=== PATIENT | male | born 1980 | race Caucasian/White ===

== ENCOUNTER 2019-12-12 15:57 | Emergency (ER) | payer OTHER, SELFPAY ==
[2019-12-12 16:06] VITALS: BP 136/94; PULSE 86; RESP 20; TEMP 36.8; O2SAT 97
--- NOTE | 2019-12-12 16:12 | ED_ITS ---
HPI - Neuro Symptoms/Deficit General Chief Complaint: Neuro Symptoms/Deficit Stated Complaint: vision blurry right eye Time Seen by Provider: 12/12/19 16:12 Source: patient and family () Mode of arrival: Ambulatory Limitations: no limitations History of Present Illness HPI Narrative: This is a 39-year-old male with right blurry vision to the eye. Patient in with complaint of starting about 3:15pm today. He states like there is a crack about half way across his vision and blurry on the right side and the right half of his vision is blurry. It is just his right eye when he covers the right eye he does not have any vision changes with the left. Patient denies headache. He denies any recent trauma. He wears glasses, he states he was wearing his contact when this occurred and he took them out. Patient states that it is not black it is just blurry he can see but it sort of wavy like he has ?sleepy? in his eye. Patient has not had any surgery on his eye but has had metal foreign bodies removed secondary to welding. He denies any numbness, tingling, difficulty with speech, he denies any facial droop. He is taking some clindamycin for a skin. He has not had similar symptoms in the past. He states he is otherwise healthy with no history of hypertension, diabetes or dyslipidemia. On Anticoagulants: No Related Data Previous Rx's Medication Instructions Recorded mometasone [Nasonex] 1 spray INTRANASAL QDAY #1 bot 03/01/17 clobetasol 1 trinity TOPICAL BIDP PRN #30 gm 04/13/17 fexofenadine 180 mg PO QDAY #30 tab 04/14/17 alprazolam [Xanax] 1 mg PO BIDP PRN #60 tab 09/13/17 sertraline [Zoloft] 1.5 tab PO QDAY #45 tab 09/13/17 Allergies Allergy/AdvReac Type Severity Reaction Status Date / Time amoxicillin [AMOXICILLIN] Allergy Mild Causes rash Unverified 02/15/18 12:36 Review of Systems Review of Systems ROS Unobtainable: All systems reviewed & are unremarkable except as noted in HPI and below Patient History Substance Use Type: marijuana Exam Narrative Exam Narrative: GEN: well nourished, well appearing male, alert and oriented x 3 , patient appears to be in mild distress. HEENT: Atraumatic, pupils are equal round reactive to light, extraocular movements are intact, nares are clear, TMs are clear with no fluid, there is no conjunctival pallor. Throat is clear without any exudates, erythema, tonsillar enlargement or uvular deviation Visual acuity: right [20/40], left [20/20] without correction. General: no globe trauma Eyelids: normal inspection. Conjunctiva/Sclera: normal inspection Corneas: normal inspection. EOM: intact, no palsy/entrapment Pupils: PERRL, normal accomadation, pupil normal Anterior Chambers: normal inspection, no hypema Posterior: normal fundoscopic bilaterally although difficulty exam. HEART: Regular rate and rhythm without murmur, clicks, rubs. LUNGS:Lungs clear to auscultation, no wheezes, rales, crackles, chest moves symmetrically ABD:bowel sounds normal, soft, non-tender, no guarding, rebound, rigidity, no masses noted, no hepatosplenomegaly MSCL: Non-tender, no muscle atrophy, muscles strength 5/5 upper and lower extremities, full range of motion, normal gait NEURO:CN 2-12 intact, sensation normal, reflexes 2/4 upper and lower extremities. finger nose finger test normal, heel quiñones test normal, no dysarthria or aphasia. SKIN: several small erythematous lesions on anterior chest. Initial Vital Signs Initial Vital Signs: Vital Signs Temperature 98.3 F 12/12/19 16:06 Pulse Rate 86 12/12/19 16:06 Respiratory Rate 20 12/12/19 16:06 Blood Pressure 136/94 H 12/12/19 16:06 Pulse Oximetry 97 12/12/19 16:06 Scores NIH Stroke Scale Level of Conciousness: Alert, keenly responsive Ask month/age: Answers both questions correctly. Open/close eyes, close hand: Performs both tasks correctly Best gaze horizontal: Normal Visual valles: No visual loss Facial palsy: Normal symetrical movement Left arm drift: No drift for full 10 sec Right arm drift: No drift for full 10 sec Left leg drift: No drift for full 10 sec Right leg drift: No drift for full 10 sec Limb ataxia: Absent Sensory on face/arms/legs: Normal, no sensory loss Best language: No aphasia, normal Dysarthria: Normal Extinction or inattention: No abnormality Total NIH Stroke scale score: 0 Course Vital Signs Vital signs: Vital Signs - 8 hr 12/12/19 16:06 Temperature 98.3 F Pulse Rate 86 Respiratory Rate 20 Blood Pressure 136/94 H Pulse Oximetry 97 MDM - Neuro Symptoms/Deficit MDM Narrative Medical decision making narrative: Patient's exam and visual changes are concerning for possible retinal involvement. Visual acuity is 20/40 on affected side and 20/20 on unaffected side. Spoke with Dr. Suárez regarding findings and he is happy to see the patient. Patient's neuro exam was otherwise normal. He has vision on confrontation and with fingers through all 5 quadrants in his right eye although they are described as more blurry on the right. Patient and I discussed if ophthalmology feels appropriate they will have him return to the ER for further evaluation. Discharge Plan Departure Patient Disposition: Home Clinical Impression: Blurred vision, right eye Discharge Date/Time: 12/12/19 16:30 Activity Restrictions/Additional Instructions: Go directly to the ophthalmology office for evaluation. Prescriptions: No Action mometasone [Nasonex] 50 MCG/PUFF spray,non-aerosol 1 spray Intranasal QDAY Qty: 1 RF: 3 clobetasol 0.05 % ointment 1 trinity Topical BIDP PRNQty: 30 RF: 5 fexofenadine 180 MG tablet 180 mg PO QDAY Qty: 30 RF: 3 alprazolam [Xanax] 1 MG tablet 1 mg PO BIDP PRNQty: 60 RF: 3 sertraline [Zoloft] 100 MG tablet 1.5 tab PO QDAY Qty: 45 RF: 3
== END 2019-12-12 16:30 | disposition home or self-care (01) ==
PROVIDERS: Emergency Provider Emergency Medicine
DX: H53.8 Other visual disturbances (principal)
CPT/HCPCS: 99281